=== PATIENT | female | born 1990 | race Caucasian/White ===

== ENCOUNTER → 2019-04-22 | Outpatient (CLI) | payer OTHER | LOC: COL.CARD 13:57 | DX: R00.2 Palpitations (principal) ==

== ENCOUNTER → 2019-05-21 | Outpatient (CLI) | payer OTHER | LOC: ZCOL.LAB 16:14 | DX: R07.9 Chest pain, unspecified (principal) ==

== ENCOUNTER → 2019-08-06 | Outpatient (CLI) | payer OTHER | LOC: COL.RAD 12:14 | DX: R51 Headache (principal) | CPT/HCPCS: A9585 ==

== ENCOUNTER → 2020-05-23 | Outpatient (CLI) | payer OTHER ==
[~2020-05-23] MED LIST: KAPSPARGO SPRIN25 MG PO; MAGNESIUM ELEME30 MG PO; NATURAL IRON65 MG
== END ==
LOC: BHSO 14:01
DX: F43.10 Post-traumatic stress disorder, unspecified (principal)

== ENCOUNTER → 2020-06-02 | Outpatient (REF) | LOC: ZCOL.LAB 18:11 → EDSTATUS 06-03 10:01 | DX: Z20.828 Contact with and (suspected) exposure to other viral communicable diseases (principal) ==

== ENCOUNTER → 2020-06-10 | Outpatient (CLI) | payer OTHER | LOC: BHSO 10:56 | DX: F43.10 Post-traumatic stress disorder, unspecified (principal) ==

== ENCOUNTER → 2020-06-30 | Outpatient (CLI) | payer OTHER | LOC: BHSO 13:46 | DX: F43.10 Post-traumatic stress disorder, unspecified (principal) ==

== ENCOUNTER 2020-09-09 06:03 | Emergency (ER) | payer OTHER ==
[~2020-09-09] VITALS: Ht 180.3 cm; Wt 62.7 kg
[2020-09-09 06:17] VITALS: TEMP 97.6
[2020-09-09 08:14] VITALS: BP 124/91; PULSE 76
== END 2020-09-09 08:14 | disposition home or self-care (01) ==
LOC: COL.ER 06:03
DX: G43.909 Migraine, unspecified, not intractable, without status migrainosus (principal); Z88.4 Allergy status to anesthetic agent
CPT/HCPCS: J1100; J1885; J2360; J2405; J7030

== ENCOUNTER 2020-09-28 15:26 | Outpatient (RCR) | payer OTHER | END 2020-10-10 | disposition home or self-care (01) | LOC: WSOH | DX: Z77.21 Contact with and (suspected) exposure to potentially hazardous body fluids (principal); W46.0XXA Contact with hypodermic needle, initial encounter; D64.9 Anemia, unspecified; G43.909 Migraine, unspecified, not intractable, without status migrainosus; M35.00 Sjogren syndrome, unspecified; Z87.81 Personal history of (healed) traumatic fracture; Y99.0 Civilian activity done for income or pay ==

== ENCOUNTER 2021-01-24 23:34 | Emergency (ER) | payer OTHER ==
[~2021-01-24] VITALS: Ht 180.3 cm; Wt 65.9 kg
[2021-01-25 00:28] VITALS: BP 121/83; PULSE 82
== END 2021-01-25 00:32 | disposition home or self-care (01) ==
LOC: COL.ER 23:34
DX: Z20.3 Contact with and (suspected) exposure to rabies (principal); Z23 Encounter for immunization; Z88.6 Allergy status to analgesic agent; Z88.8 Allergy status to other drugs, medicaments and biological substances

== ENCOUNTER 2021-01-24 23:36 | Outpatient (RCR) | payer OTHER | END 2021-04-24 | LOC: COL.ER | DX: Z20.3 Contact with and (suspected) exposure to rabies (principal) ==

== ENCOUNTER 2021-02-08 07:58 | Outpatient (RCR) | payer OTHER | END 2021-04-27 | disposition home or self-care (01) | LOC: WSOH | DX: Z23 Encounter for immunization (principal); Z20.3 Contact with and (suspected) exposure to rabies ==

== ENCOUNTER 2022-01-02 07:30 | Day surgery (SDC) | payer BC, OTHER ==
[~2022-01-02] VITALS: Ht 180.3 cm; Wt 69.3 kg
[2022-01-02 08:07] VITALS: BP 120/84; PULSE 88; TEMP 97.6
[2022-01-02] MEDS ORDERED: BENTYL 10MG10 MG/CAP PO (09:05)
[2022-01-02] MEDS ORDERED: PROTONIX 40MG T40 MG PO (09:05)
[2022-01-02 10:00] VITALS: BP 122/80; PULSE 69; TEMP 98.2
[2022-01-02 10:15] VITALS: BP 116/77; PULSE 73
[2022-01-02 10:30] VITALS: BP 119/72; PULSE 80
[2022-01-02 10:50] VITALS: BP 123/76; PULSE 82
--- NOTE | 2022-01-02 10:53 | NUR ---
1000 PT RETURNED TO BAY 2 VIA CART. DROWSY BUT ORIENTED. MONITORS ATTACHED. INTERVALS AND ALARMS SET. PT REPORTS HX OF SLOW TO WAKE FROM SEDATION. DR IN TO SPEAK WITH PT. APPLE JUICE AND SALTINES PROVIDED. 1015 PT TOLERATING FOOD AND DRINK WELL. RIDE CALLED. 1030 PT ALERT AND ORIENTED X4. DENIES PAIN OR NAUSEA. REVIEWED DISCHARGE INSTRUCTIONS AND EDUCATION MATERIAL. PT VERBALIZED UNDERSTANDING. 1053 PT TRANSFERED VIA WHEELCHAIR TO PERSONAL VEHICLE TO BE DRIVEN HOME BY FRIEND.
== END 2022-01-02 10:53 | disposition home or self-care (01) ==
LOC: SDCO 07:30
DX: K29.30 Chronic superficial gastritis without bleeding (principal); K64.0 First degree hemorrhoids; R19.7 Diarrhea, unspecified
CPT/HCPCS: J2704; J7030

== ENCOUNTER 2024-05-01 12:00 | Emergency (ER) | payer OTHER ==
[~2024-05-01] VITALS: Ht 180.3 cm; Wt 72.7 kg
[~2024-05-01 12:00] MED LIST changes: +BENTYL 10MG10 MG/CAP PO; +PEPCID 20MG TAB20 MG PO; +PREDNISONE20 MG PO; +PREDNISONE50 MG PO; +PROTONIX 40MG T40 MG PO
[2024-05-01 12:07] VITALS: TEMP 98.2
[2024-05-01 12:53] LABS: BASO % 0.3 % (0.0-2.0); EOS # 0.2 K/mm3 (0.0-0.7); EOS % 2.7 % (0.0-4.0); GRAN # 4.7 K/mm3 (1.4-6.5); GRAN % 75.3 % (42.2-75.2); HEMATOCRIT 45.5 % (37.0-47.0); HEMOGLOBIN 14.8 g/dl (12.5-16.0); LYMPH # 0.8 K/mm3 (1.2-3.4); LYMPH % 13.4 % (20.0-51.0); MEAN CELL VOLUME 84 fl (80.0-100.0); MEAN CORPUSCULAR HEMOGLOBIN 27 pg (27-31); MEAN CORPUSCULAR HGB CONC 33 g/dl (33.0-37.0); MEAN PLATELET VOLUME 10.1 fl (7.4-10.4); MONO # 0.5 K/mm3 (0.1-0.6); PLATELET COUNT 273 K/mm3 (130-400); REDCELL DISTRIBUTION WIDTH-CV 13.2 % (11.5-14.5)
[2024-05-01 13:14] LABS: ALBUMIN 4.4 g/dL (3.5-5.0); BILIRUBIN,TOTAL 0.4 mg/dL (0.2-1.2); CALCIUM 9.1 mg/dL (8.4-10.2); CREATININE, serum 0.78 mg/dL (0.57-1.11); POTASSIUM 3.5 mEq/L (3.5-4.5); TOTAL PROTEIN 7.8 g/dl (6.2-8.1)
[2024-05-01 13:50] LABS: PH 5.5 (5.0-8.5); URINE APPEARANCE CLEAR (CLEAR/HAZY); URINE BLOOD NEGATIVE (NEGATIVE); URINE COLOR YELLOW (YELLOW); URINE GLUCOSE NEGATIVE (NEGATIVE); URINE KETONE TRACE (NEGATIVE); URINE NITRATE NEGATIVE (NEGATIVE); URINE PROTEIN(semi-quant) NEGATIVE (NEGATIVE); URINE UROBILINOGEN 0.2 E.U/dL (0.2-1.0)
[2024-05-01 13:55] LABS: COLLECTION METHOD CLEAN CATCH
[2024-05-01] MEDS ORDERED: FLEXERIL 1010 MG/TAB PO (14:28)
[2024-05-01] MEDS ORDERED: NORCO 325 MG-51 TAB PO (14:28)
[2024-05-01 14:36] VITALS: BP 121/86; PULSE 81
[2024-05-01] MEDS ORDERED: PREDNISONE50 MG PO (14:59)
== END 2024-05-01 14:36 | disposition home or self-care (01) ==
LOC: COL.ER 12:00
PROVIDERS: Family Medicine
DX: G89.29 Other chronic pain (principal); M54.50 Low back pain, unspecified